=== PATIENT | female | born 1980 | race Caucasian/White ===

== ENCOUNTER 2018-06-25 18:51 | Observation (INO) | payer BC ==
[~2018-06-25] VITALS: Ht 170.2 cm; Wt 128.9 kg
[2018-06-25 19:52] LABS: BASO # 0.1 (0.0-0.2); BASO % 0.7 % (0.0-2.0); EOS # 0.2 (0.0-0.7); EOS % 2.9 % (0-4.0); GRAN # 4.1 (1.4-6.5); GRAN % 56.9 % (42.2-75.2); HEMATOCRIT 37.9 % (37.0-47.0); HEMOGLOBIN 12.3 g/dl (12.5-16.0); LYMPH % 28.2 % (20.0-51.0); MEAN CELL VOLUME 79 fl (80.0-100.0); MEAN CORPUSCULAR HEMOGLOBIN 26 pg (27.0-31.0); MEAN CORPUSCULAR HGB CONC 33 g/dl (33.0-37.0); MEAN PLATELET VOLUME 9.6 fl (7.4-10.4); MONO # 0.8 (0.1-0.6); MONO % 11.2 % (1.7-9.3); PLATELET COUNT 278 K/mm3 (130-400); RED BLOOD COUNT 4.78 M/mm3 (4.10-5.30); REDCELL DISTRIBUTION WIDTH-CV 14.6 % (11.5-14.5)
[2018-06-25 20:02] LABS: BILIRUBIN,TOTAL 0.3 mg/dL (0.0-1.0); CALCIUM 8.7 mg/dL (8.4-10.2); CREATININE, serum 0.79 (0.52-1.25); POTASSIUM 4.2 mmol/L (3.4-5.0); TOTAL PROTEIN 7.9 gm/dL (6.4-8.2)
[2018-06-25] MEDS ORDERED: CELEXA 20MG20 MG/TAB PO (20:08)
[2018-06-25 21:58] VITALS: BP 160/87; PULSE 62; TEMP 98.9
--- NOTE | 2018-06-25 22:00 | NUR ---
PT Arrived to medical unit. oriented to room and staff. pain in right abd, descibes as a pressure. 4/10 on pain scale. med rec complete. IV to right AC, no redness no swelling. no needs at this time. call light in reach
[2018-06-25 23:51] VITALS: BP 125/57; PULSE 61; TEMP 98.1
[2018-06-26] VITALS (10 sets, daily range): BP systolic 119–150; BP diastolic 62–83; PULSE 60–84; TEMP 96.8–98
--- NOTE | 2018-06-26 05:50 | NUR ---
pt has had unrelieved pain 8/ right abd and back pain . dr cisneros called, new order for dilaudid 0.5-1 mg Q1H prn. no nausea at this time. loss of appetite. NPO since arrival to unit. no needs at this time. call light in reach
--- NOTE | 2018-06-26 06:59 | NUR ---
report given to KIP Kenney. pt sleeping
--- NOTE | 2018-06-26 08:45 | NUR ---
Assessment complete. Lung sounds clear, heart RRR. Radial pulses strong bilaterally. Denies SOB, chest pain, dizziness. C/O of nausea, denies vomiting. Zofran PRN administered. Consent for surgery signed. Anesthesia in to see patient. Denies other needs at this time.
--- NOTE | 2018-06-26 09:07 | NUR ---
patient down for marjorie surgery by bed.
--- NOTE | 2018-06-26 11:30 | NUR ---
Patient back from surgery. VSS, patient alert, drowsy, family at bedside. Denies other needs at this time, call light within reach.
--- NOTE | 2018-06-26 11:49 | NUR ---
Patient back from surgery. 4 abdomen sites with bandaids, CDI. Post-op vitals in progress. Patient tolerating ice chips. C/O abdominal pain, epigastric pain, radiating to left side. After post-op checks, will have patient up and moving. Pain possibly gas related. Denies other needs at this time. Family at bedside. Call light within reach.
--- NOTE | 2018-06-26 11:55 | NUR ---
SW attempted to meet with the patient; the patient was not in the room. SW will attempt at a later time.
--- NOTE | 2018-06-26 13:45 | NUR ---
VSS, patient tolerating liquids, liquid tray ordered. Patient states pain is better, rating it "about a 5". SBA to bathroom. Patient ambulating well.
--- NOTE | 2018-06-26 14:39 | NUR ---
Patient requesting zofran, feels "nauseous". Administered 1 tab [place] and zofran PRN per MAR. patient belched and stated she "felt a little better". Awaiting to return from home. Patient will have clear liquid tray and then ambulate halls this afternoon. Denies other needs, call light within reach.
--- NOTE | 2018-06-26 19:26 | NUR ---
Patient has had couple of episodes of vomiting after trying liquid tray. Patient feels zofran "isn't working". Patient got her gluten free crackers. Patient has not been able to get up and walk due to nausea. Report given to KIP Briggs. [place] is calling Dr. Moore for new orders for phenergan.
--- NOTE | 2018-06-26 20:08 | NUR ---
pt in bed resting, C/O minor pain, nausea getting better, shift aseeseements complete, left Pt call light in reach, bed in lowest position.
[2018-06-27] VITALS: BP 131/74; PULSE 72; TEMP 98.5
[2018-06-27 04:13] VITALS: BP 126/70; PULSE 73; TEMP 98.3
--- NOTE | 2018-06-27 05:26 | NUR ---
Pt slept during the night, C/O pain of 4 at the laparoscope sites, some light nausea noted but Pt states that it has "gotten better" since earlier last night, VS have have been stable throughout the night.
--- NOTE | 2018-06-27 05:45 | NUR ---
Pt walked the hallway from her room to the peds desk and return.
[2018-06-27 07:07] VITALS: BP 134/69; PULSE 67; TEMP 98.5
[2018-06-27 07:39] VITALS: BP 140/72; PULSE 65; TEMP 97.9
--- NOTE | 2018-06-27 07:51 | NUR ---
Pt alert and oriented. Pt rates pain 3/10 only pressure in abdomen. Pt up walking with friend in hallway. Pt eating breakfast and denies nausea. Pt four lap sites on abdomen are clean,dry, intact, and covered with bandaids. Pt states she is ready to go home. Pt has call light in reach and denies needs at this time.
--- NOTE | 2018-06-27 10:46 | NUR ---
Pt alert and oriented. Pt headache remains 04/18. Pt given Tylenol PRN around 0920am. Pt states she will take Ibuprofen at home which she normally takes for headaches. Pt spouse at bedside. Pt given discharge instructions. Pt sites CDI and covered with bandaids. Pt denies questions. Pt IV discontinued in RAC and tip intact and no redness or infiltration noted.
--- NOTE | 2018-06-27 11:00 | NUR ---
Pt escorted out via wheelchair without incident.
--- NOTE | 2018-06-27 12:05 | NUR ---
Patient lives at home with her (Micah) in [place], [place] and plans to return home with her upon discharge and recovery. Patient is independent with daily living activities and does not currently have any durable medical equipment usage or anticipated needs, her primary care physician is Matteo Mitchell, her pharmacy is [facility], and she does not have healthcare advance directives completed at this time. No further needs at this time and social service technician will follow as needed.
== END 2018-06-27 11:00 | disposition home or self-care (01) ==
LOC: COL.ER 18:51 → MEDICAL 21:23
PROVIDERS: Emergency Medicine; ADMIT Surgery
DX: K80.10 Calculus of gallbladder with chronic cholecystitis without obstruction (principal); I10 Essential (primary) hypertension; M06.9 Rheumatoid arthritis, unspecified; K21.9 Gastro-esophageal reflux disease without esophagitis; Z79.899 Other long term (current) drug therapy
CPT/HCPCS: A4216; G0378; J0690; J0696; J1100; J1170; J1885; J2175; J2270; J2405; J2550; J2704; J2710; J3010; J7030; Q9967

== ENCOUNTER 2021-03-23 09:27 | Emergency (ER) | payer BC ==
[~2021-03-23] VITALS: Ht 170.2 cm; Wt 140.9 kg
[~2021-03-23 09:27] MED LIST: CELEXA 20MG20 MG/TAB PO
[2021-03-23 10:28] VITALS: BP 134/96; TEMP 98.7
[2021-03-23 12:39] VITALS: PULSE 84
== END 2021-03-23 12:39 | disposition short-term general hospital (02) ==
LOC: COL.ER 09:27
DX: B02.31 Zoster conjunctivitis (principal); I10 Essential (primary) hypertension; M06.9 Rheumatoid arthritis, unspecified; F32.A Depression, unspecified; Z20.822 Contact with and (suspected) exposure to COVID-19; Z79.899 Other long term (current) drug therapy
CPT/HCPCS: J0133; J1200; J2765; J7030; J7050